=== PATIENT | male | born 1985 | race Caucasian/White ===

== ENCOUNTER → 2023-05-11 | Outpatient (CLI) | payer SELFPAY ==
--- NOTE | 2023-05-11 09:30 | VAS_PTH ---
PATHOLOGY RESULTS PATIENT: SOPHY REAL JR LOC: [facility] U#:[id number] AGE/SX: 37/M ROOM: RE05/11/[address]: Dr. Morgan Cervantes MD : 1985 BED: DIS: 05/11/2023 SPEC #: [id number] RECD: 05/11/23 11:45 STATUS: PINKY MALIHA #: [id number] FLORENCIO: 05/11/23 09:[address]: Morgan Cervantes DEPT: SURGICAL PATHOLOGY RECD BY: Giana Stevens ENTERED: 05/11/23 11:46 SP TYPE: VAS OTHR DR: Shanta Vaz PA-C Tissues: Vas deferens, NOS Vas deferens, NOS Procedures: Surgery Specimen Level II HEADER OPERATION: Bilateral partial vasectomy PRE-OP DIAGNOSIS: Sterilization TISSUE SUBMITTED: A - Right vas deferens, B - Left vas deferens MICROSCOPIC DIAGNOSIS A. Right vas deferens, partial vasectomy: Completely transected segment of vas deferens, no pathologic diagnosis. B. Left vas deferens, partial vasectomy: Completely transected segment of vas deferens, no pathologic diagnosis. RYLEY:lan 05/12/2023 MICROSCOPIC DESCRIPTION Slides are reviewed. GROSS DESCRIPTION A - Received is one container designated right vas deferens. The specimen consists of a tubular segment of chase soft tissue measuring 1.5 cm in length and 0.2 cm in diameter. The specimen is sectioned and submitted entirely in one cassette. B - Received is one container designated left vas deferens. The specimen consists of a tubular segment of chase soft tissue measuring 1.0 cm in length and 0.2 cm in diameter. The specimen is sectioned and submitted entirely in one cassette. / RYLEY:lan 05/11/2023 TC:4 CPT: 67200 x2
== END | disposition home or self-care (01) ==
LOC: LABSPEC 10:21
PROVIDERS: PCP Family Medicine; Referring Provider Surgery; Visit Provider Surgery
DX: Z30.2 Encounter for sterilization (principal)
CPT/HCPCS: 88302